=== PATIENT | male | born 1990 | race Caucasian/White ===

== ENCOUNTER 2016-12-04 13:09 | Emergency (ER) | payer SELFPAY ==
[2016-12-04 13:19] VITALS: BP 131/94; PULSE 71; TEMP 98; BMI 29.9
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
[2016-12-04] MEDS ORDERED: IBUPROFEN 400 MG TABLET (FP) PO ONE ×2 (13:59→14:04)
[2016-12-04] MEDS ORDERED: CYCLOBENZAPRINE HCL 10 MG TABLET (FP) PO ONE (13:59)
[2016-12-04] MEDS ORDERED: CYCLOBENZAPRINE HCL 10 MG TABLET (FP) ONE (14:04)
--- NOTE | 2016-12-04 14:43 | PDOC ---
*Physical Exam - Vital Signs Last Vital Signs Temp Pulse Resp BP Pulse Ox 98.0 F 71 18 131/94 100 12/04/16 13:14 12/04/16 13:14 12/04/16 13:14 12/04/16 13:14 12/04/16 13:14 ED Treatment Course - Medications Given in the ED: ED Medications Discontinued Medications Generic Name Dose Route Start Last Admin Trade Name Freq PRN Reason Stop Dose Admin Cyclobenzaprine HCl 5 mg 12/04/16 13:59 12/04/16 14:07 Flexeril - PO 12/04/16 14:00 5 mg ONCE ONE Administration Ibuprofen 800 mg 12/04/16 13:59 12/04/16 14:07 Motrin - PO 12/04/16 14:00 800 mg ONCE ONE Administration Medical Decision Making - Medical Decision Making 12/04/16 14:42 Patient reports feeling significantly better after meds. Prescription sent to pharmacy. Patient to return to ED for worsening of symptoms 12/04/16 14:43 *DC/Admit/Observation/Transfer Diagnosis at time of Disposition: Neck discomfort - Discharge Dispostion Disposition: HOME Condition at time of disposition: Good - Prescriptions Prescriptions: Cyclobenzaprine HCl [Flexeril 10 mg] 10 mg PO TID PRN #9 tablet PRN Reason: Pain Ibuprofen [Motrin -] 800 mg PO Q6H #30 tablet - Referrals Referrals: Tucker Davis MD [Primary Care Provider] - - Patient Instructions Printed Discharge Instructions: DI for Torticollis Additional Instructions: Return to ED for worsening of symptoms Please continue to follow with your pmd - Post Discharge Activity
== END 2016-12-04 14:49 | disposition home or self-care (01) ==
LOC: JER 13:09 → JERFT 13:09
DX: M54.2 Cervicalgia (principal); F17.210 Nicotine dependence, cigarettes, uncomplicated; R03.0 Elevated blood-pressure reading, without diagnosis of hypertension
CPT/HCPCS: 99281-25